=== PATIENT | male | born 1980 | race Caucasian/White ===

== ENCOUNTER 2024-04-11 13:37 | Emergency (ER) | payer OTHER, SELFPAY ==
[2024-04-11 13:38] VITALS: PULSE 94; RESP 18; TEMP 36.4; O2SAT 97; BMI 39.8
[2024-04-11] MEDS: Ketorolac 30 MG/ML Syringe IM (16:16)
--- NOTE | 2024-04-11 16:23 | EDS_ITS ---
HPI History of Present Illness Chief Complaint: Other, Pain/Inj Narrative Narrative: Chief complaint and HPI: Right-sided neck pain. 43-year-old male with no significant past medical history presents for evaluation of right-sided neck pain. Patient states that he has been having right-sided neck pain since when he slept wrong on the couch. Patient describes his pain as crampy. Denies numbness, weakness, recent invasive manipulation of the spine, intravenous drug use, or fever. Denies any trauma or injury. Has been taking Tylenol. Review of systems: See HPI Medications: As listed on the chart Allergies: As listed on the chart PFSH: Per chart Vital signs: As listed on the chart. Reviewed. Physical exam: Gen: A&O x3, NAD Head: Normocephalic, atraumatic Eyes: No sclera icterus, conjunctiva clear, PERRL, EOMI ENT: Moist mucous membranes Neck: Trachea midline, No JVD, no midline spinal tenderness, mild tenderness to palpation of the paraspinal musculature of the right cervical spine as well as into the trapezius muscle-this recreates the patient's pain, no signs of infection or injury CV: RRR, no murmurs, no peripheral edema Resp: Lungs CTA BL, no w/r/c Musc: Full ROM, no deformity, radial/ulnar pulse in the right upper extremity +2, good capillary refill, sensation intact Skin: Warm, dry Neuro: Alert, oriented, grossly intact, sensation intact Psych: Cooperative, appropriate mood and affect [facility] Home Medications ?Medication ?Instructions ?Recorded ?Last Taken ?Type NK 04/11/24 Unknown History Allergy/AdvReac Type Severity Reaction Status Date / Time No Known Allergies Allergy Verified 04/11/24 13:38 Social History Smoking Status: Current every day smoker tobacco type: cigarettes and e- cigarettes EXAM Physical Exam Const Vital Signs: 04/11/24 13:38 04/11/24 16:18 Temperature 97.5 F L Temperature Source Temporal Pulse Rate 94 Respiratory Rate 18 Respiratory Effort Normal Non-Labored Respiratory Pattern Normal Pulse Ox 97 Oxygen Delivery Method Room Air MDM MDM MDM Narrative Medical decision making narrative: 43-year-old male with no significant past medical history presents for evaluation of right-sided neck pain. Neck pain started after the patient slept wrong on the couch. There has been no trauma. There is nothing to suggest any infectious etiology. The patient is not an IV drug user. There is no neurologic findings. At this point I do not feel any emergent imaging such as x-rays or MRI are warranted. Patient symptoms will be treated. Patient drove and therefore muscle relaxer not given. I will give him a prescription for Flexeril. Follow- up with PCP. Patient will be given IM Toradol. He was educated not to take ibuprofen for the next 8 hours. Okay for Tylenol. Return precautions explained. He confirmed understand the plan. Patient is able to discharge home. Impression: 1. Right neck strain Discharge Plan Triage Chief Complaint: Other, Pain/Inj ED Provider: Bennett Pickens Dx/Rx/DC Orders Prescriptions: No Action NK Print Language: Ken[place]
== END 2024-04-11 16:55 | disposition home or self-care (01) ==
LOC: ED 16:34
PROVIDERS: Emergency Provider Surgery; Visit Provider Surgery
DX: S16.1XXA Strain of muscle, fascia and tendon at neck level, initial encounter (principal); X50.9XXA Other and unspecified overexertion or strenuous movements or postures, initial encounter; F17.210 Nicotine dependence, cigarettes, uncomplicated; F17.290 Nicotine dependence, other tobacco product, uncomplicated
CPT/HCPCS: 96372; 99282